=== PATIENT | female | born 1980 | race Caucasian/White ===

== ENCOUNTER 2024-11-27 17:04 | Emergency (ER) | payer MEDICAID, SELFPAY ==
[2024-11-27] VITALS (7 sets, daily range): BP systolic 134–158; BP diastolic 68–91; PULSE 57–74; RESP 14–20; TEMP 36.7–37.2; O2SAT 99–100
--- NOTE | 2024-11-27 17:30 | XR_ITS ---
Examination: Pelvic ultrasound, transabdominal, complete Technique: Transabdominal ultrasound of the pelvis performed using grayscale imaging Date and time of exam: November 27, 2024, 1845 hrs., Comparison March 09, 2021 Indications: Pelvic pain and irregular menses beginning this week Findings: Uterus 12.0 cm Endometrial mid uterine body mass vascular 6.1 x 4.5 x 3.1 cm, enlarged since the prior study Right ovary 3.4 cm arterial flow minimal free fluid Left ovary 4.2 cm arterial flow 21 x 19 mm cyst Impression: Large heterogeneous vascular mass in the mid uterus 6.1 x 4.5 x 3.1 cm, differential would include malignant neoplasm of the uterus Recommend elective MRI pelvis follow-up pre and postcontrast
--- NOTE | 2024-11-27 17:30 | XR_ITS ---
Examination: CT abdomen and pelvis without contrast. Coronal 3-D reconstructions. Sagittal 2-D reconstructions. Date and time of exam:November 27, 2024 19 14 mm Indications: Left lower abdominal pain flank pain beginning 2 days ago Comparison: March 09, 2021 CTDI: vol (mGy): 6.22 DLP: (mGycm): 336 Technique: Axial images of the abdomen have been obtained, 3 mm slice thickness Intravenous contrast material has not been administered. Low dose protocols were performed. One or more of the following dose reduction techniques were used; automated exposure control, adjustment of the mA and/or KV according to patient size, use of iterative reconstruction technique. Findings: 6 mm pulmonary nodule right lower No visualized liver lesion Contracted gallbladder No pancreatic or adrenal mass No renal or ureteral calculi, no hydronephrosis Normal appendix No bowel obstruction Significantly enlarged fundus of uterus with uterine fundal endometrial mass, please see the pelvic sonogram report today No adnexal mass Osseous structures intact No bladder mass or bladder calculi Impression: 6 mm pulmonary nodule right lower lobe, recommend PA lateral chest follow-up No renal or ureteral calculi, no hydronephrosis, no perinephric stranding Normal appendix Large mass in the fundus of uterus, please see the pelvic sonogram report and recommendations today No bladder mass or bladder calculi
--- NOTE | 2024-11-27 17:31 | PD.EDRME ---
Rapid Medical Screening Exam RME Arrival date/time: 11/27/24 17:04 43-year-old female presents to the Emergency Department for complains of pelvic pain and abdominal pain Chief Complaint: Abdominal Pain Vital signs: Vital Signs Temperature 98.9 F 11/27/24 17:24 Pulse Rate 74 11/27/24 17:24 Respiratory Rate 20 11/27/24 17:24 Blood Pressure 158/68 H 11/27/24 17:24 Pulse Oximetry (%) 100 11/27/24 17:24 Oxygen Delivery Method Room Air 11/27/24 17:24
[2024-11-27] MEDS: KETOROLAC INJ 60 MG/2 ML VIAL 30 MG IM (17:41)
[2024-11-27 17:49] LABS: Basophils # (Auto) 0.1 Thou/mm3 (0.0-0.2); Basophils % (Auto) 1 % (0-2.5); Eosinophils # (Auto) 0.2 Thou/mm3 (0.0-0.5); Eosinophils % (Auto) 2 % (0-10); Hematocrit 26.5 % (36.0-46.0); Immature Granulocytes Auto 0.07 Thou/mm3 (0.00-0.00); Lymphocytes # (Auto) 2.6 Thou/mm3 (1.0-4.8); Lymphocytes % (Auto) 24 % (10-50); Mean Corpuscular HGB Conc 26.0 g/dl (31.0-37.0); Mean Corpuscular Hemoglobin 16.1 pg (25.0-35.0); Mean Corpuscular Volume 62 fL (80-100); Monocytes # (Auto) 1.0 Thou/mm3 (0.0-0.8); Monocytes % (Auto) 9 % (0-12); Neutrophils # (Auto) 7.0 Thou/mm3 (1.8-7.7); Neutrophils % (Auto) 64 % (37-80); Nucleated Red Blood Cell # 0.00 Thou/mm3 (0.00-0.00); Nucleated Red Blood Cell % 0 /100 WBC (0); Platelet Count 397 Thou/mm3 (140-440); RDW Standard Deviation 41.8 fL (36.4-46.3); Red Blood Count 4.29 Miln/mm3 (4.00-5.20); White Blood Count 10.9 Thou/mm3 (3.6-11.0)
[2024-11-27 17:51] LABS: Hemoglobin 6.9 g/dL (12.0-16.0)
[2024-11-27 18:01] LABS: Alanine Aminotransferase 50 U/L (10-49); Albumin, Serum 3.8 gm/dL (3.5-5.0); Albumin/Globulin Ratio 1.3 (1.2-2.2); Alkaline Phosphatase 102 U/L (46-116); Anion Gap 8 (7-16); Aspartate Amino Transferase 51 U/L (0-34); BUN/Creatinine Ratio 17 Ratio (12-20); Bilirubin,Total 0.4 mg/dL (0.3-1.2); Blood Urea Nitrogen 12 mg/dL (9-23); Calcium 8.4 mg/dL (8.3-10.6); Calcium (Corrected) 8.6 mg/dL (8.5-10.1); Carbon Dioxide 24.4 mMol/L (20.0-31.0); Chloride 108 mMol/L (98-107); Creatinine (Component) 0.7 mg/dL (0.6-1.3); Globulin 3.0 gm/dL (2.3-3.5); Glucose 93 mg/dL (74-106); Osmolality,Calculated 279 (275-295); Potassium 4.3 mMol/L (3.4-5.1); Sodium 140 mMol/L (136-145); Total Protein 6.8 gm/dL (5.7-8.2); eGFR > 60 See Note
--- NOTE | 2024-11-27 18:23 | EDNOTE_ITS ---
ED Abdominal Pain RME/HPI General Chief Complaint: Abdominal Pain Stated complaint: ABD PAIN Time seen by provider: 11/27/24 18:24 Arrival date/time: 11/27/24 17:04 RME / HPI RME / HPI narrative: 11/27/24 17:04 43-year-old female presents to the Emergency Department for complains of pelvic pain and abdominal pain ------ Dr. Henry?s Main ED Evaluation: 43yo female presents to the ED for a chief complaint of LLQ pain x 2 days. No radiation or migration. Patient reports associated nausea and generalized weakness. Patient denies any vomiting, fever, chills, UTI symptoms, melena, hematochezia, or any other associated symptoms. She is currently menstruating. Patient has experienced similar symptoms when she was previously diagnosed with ovarian cysts. Allergies: codeine Related Data Previous Rx's ?Medication ?Instructions ?Recorded ferrous sulfate 325 mg (65 mg 325 mg PO BID #60 tabs 0 09/15/23 iron) tablet ferrous sulfate 325 mg (65 mg 325 mg PO TID #90 tabs 0 11/27/24 iron) tablet (Feosol) Allergies Allergy/AdvReac Type Severity Reaction Status Date / Time codeine Allergy Mild RASH Verified 03/09/21 10:30 Review of Systems Review of Systems Systems Reviewed: All systems reviewed, normal except as documented Past Medical History Past Medical History NEUROLOGIC: Positive Seizures; Negative Neurological Disorders CARDIAC: Positive Heart Murmur and Hypotension; Negative Cardiac Disorders or Congestive Heart Failure RESPIRATORY: Negative Chronic Obstructive Pulmonary Disease (COPD) or Asthma GASTROINTESTINAL: Negative Gastrointestinal Disorders GENITOURINARY: Negative Genitourinary Disorders or Renal Disease MUSCULOSKELETAL: Negative Musculoskeletal Disorders ENDOCRINE: Negative Endocrine Disorders, Diabetes Mellitus Type 1 or Diabetes Mellitus Type 2 HEMATOLOGIC: Negative Blood Disorders or Sickle Cell Disease PSYCHO/SOCIAL: Positive Anxiety Surgical History SURGICAL: Negative Cardiac Surgery Social History SMOKING STATUS: Current every day smoker SECOND HAND EXPOSURE: Yes ED Exam Narrative Physical exam: Generally the patient is alert appearing older than stated age but no obvious distress, heart regular rate and rhythm, lungs clear to auscultation equal bilaterally, abdomen soft bowel sounds present nondistended left lower quadrant abdominal tenderness without rebound. No suprapubic abdominal tenderness. Skin is warm pale and dry, neurologic exam shows Carmelo Coma Scale of 15. Course Quality Measures none Orders Category Date Time Status Insert IV NOW Care 11/27/24 18:45 Active Transfuse,blood/blood products NOW Care 11/27/24 18:[address] abdomen pelvis wo con Stat Exams 11/27/24 17:30 Completed US pelvic complete Stat Exams 11/27/24 17:30 Completed Antibody Identification Stat Lab 11/27/24 18:42 Results Beta HCG,Quantitative Stat Lab 11/27/24 17:37 Completed CBC Stat Lab 11/27/24 17:37 Completed Comprehensive Metabolic Panel Stat Lab 11/27/24 17:37 Completed Drug Screen,Urine Stat Lab 11/27/24 17:30 Ordered HCG Qualitative,Urine Stat Lab 11/27/24 17:30 Ordered Type and Screen Stat Lab 11/27/24 18:42 Results UA, C/S IF [Urinalysis, C/S if Indicated] Stat Lab 11/27/24 17:30 Ordered prbc [Red Blood Cells] Stat Lab 11/27/24 18:42 Results Ketorolac Inj [Toradol Inj] Med 11/27/24 17:31 Discontinued 30 mg IM X1 ONE Morphine* Inj Med 11/27/24 18:28 Discontinued 4 mg IVP X1 ONE Vital Signs Vital signs: Vital Signs Temperature 98.9 F 11/27/24 17:24 Pulse Rate 74 11/27/24 17:24 Respiratory Rate 20 11/27/24 17:24 Blood Pressure 158/68 H 11/27/24 17:24 Pulse Oximetry (%) 100 11/27/24 17:24 Oxygen Delivery Method Room Air 11/27/24 17:24 Abdominal Pain MDM MDM Narrative MDM Narrative:: Scribe Attestation: 11/27/24 Idania Smalls am scribing for and in the presence of Dr. Henry. I interpreted all labs. was negative. CT scan down the abdomen pelvis without contrast showed no acute inflammatory state. Pelvic ultrasound did show an intrauterine mass. That could be the cause of this patient's pain. She will need to follow-up with an FAMILY PSYCHOLOGIST physician and possibly undergo outpatient MRI. This was stressed to the patient and she understands the importance. Patient did receive morphine 4 mg IV for pain with benefit. Patient will be discharged in stable condition. Patient has a longstanding history of anemia and has needed blood transfusions in the past. It is a microcytic anemia. I will start the patient on iron. She denies melena or hematochezia. Her hemoglobin tonight was 6.9 so the patient will be transfused with 1 unit of packed RBCs. Patient data External records reviewed:: [facility] previous records (Per chart review, patient was seen here on 09/15/23 for anemia. ) Clinical information provided by:: patient Social determinants that could affect healthcare access:: none Patient has the following chronic illnesses:: none How is presenting disease/condition affected by chronic disease/condition?: no chronic disease Evaluation data The following diagnostics were reviewed and interpreted by me:: lab results and radiology exam(s) Lab and/or radiology exams considered but not ordered:: none Interpretation Summary: [facility] Report Signed Patient: SSUAN GUTIERREZ [employer]. Record#: [id number] Birthdate: 1980 Age/Sex: 43 / F Location: [facility] Attending Dr: Ordering Physician: Seb WEAVER)Chito NP Date of Service: 11/27/24 Procedure(s): US pelvic complete Accession Number(s): [id number] cc: Seb WEAVER),Chito [place]; Darshan Mai MD; NO PRIMARY/FAMILY,PHYSICIAN~ Examination: Pelvic ultrasound, transabdominal, complete Technique: Transabdominal ultrasound of the pelvis performed using grayscale imaging Date and time of exam: November 27, 2024, 1845 hrs., Comparison March 09, 2021 Indications: Pelvic pain and irregular menses beginning this week Findings: Uterus 12.0 cm Endometrial mid uterine body mass vascular 6.1 x 4.5 x 3.1 cm, enlarged since the prior study Right ovary 3.4 cm arterial flow minimal free fluid Left ovary 4.2 cm arterial flow 21 x 19 mm cyst Impression: Large heterogeneous vascular mass in the mid uterus 6.1 x 4.5 x 3.1 cm, differential would include malignant neoplasm of the uterus Recommend elective MRI pelvis follow-up pre and postcontrast Dictated By: Darshan Mai MD Signed By: <Electronically signed by Darshan Mai MD in > [facility] Report Signed Patient: SUSAN GUTIERREZ [employer]. Record#: [id number] Birthdate: 1980 Age/Sex: 43 / F Location: [facility] Attending Dr: Ordering Physician: Seb (LILIAN)Chito NP Date of Service: 11/27/24 Procedure(s): CT abdomen pelvis wo con Accession Number(s): [id number] cc: Seb WEAVER),Chito [place]; Darshan Mai MD; NO PRIMARY/FAMILY,PHYSICIAN~ Examination: CT abdomen and pelvis without contrast. Coronal 3-D reconstructions. Sagittal 2-D reconstructions. Date and time of exam:November 27, 2024 19 14 mm Indications: Left lower abdominal pain flank pain beginning 2 days ago Comparison: March 09, 2021 CTDI: vol (mGy): 6.22 DLP: (mGycm): 336 Technique: Axial images of the abdomen have been obtained, 3 mm slice thickness Intravenous contrast material has not been administered. Low dose protocols were performed. One or more of the following dose reduction techniques were used; automated exposure control, adjustment of the mA and/or KV according to patient size, use of iterative reconstruction technique. Findings: 6 mm pulmonary nodule right lower No visualized liver lesion Contracted gallbladder No pancreatic or adrenal mass No renal or ureteral calculi, no hydronephrosis Normal appendix No bowel obstruction Significantly enlarged fundus of uterus with uterine fundal endometrial mass, please see the pelvic sonogram report today No adnexal mass Osseous structures intact No bladder mass or bladder calculi Impression: 6 mm pulmonary nodule right lower lobe, recommend PA lateral chest follow-up No renal or ureteral calculi, no hydronephrosis, no perinephric stranding Normal appendix Large mass in the fundus of uterus, please see the pelvic sonogram report and recommendations today No bladder mass or bladder calculi Dictated By: Darshan Mai MD Signed By: <Electronically signed by Darshna Mai MD in [place]> 11/27/24 1929 Medications / Prescriptions Medications or Prescriptions considered but not ordered:: none Medication administrations:: Medication Administration History Discontinued Medications Ketorolac Tromethamine (Ketorolac Inj 60 Mg/2 Ml Vial) 30 mg IM X1 ONE Stop: 11/27/24 17:32 Last Admin: 11/27/24 17:41 Dose: 30 mg Documented By: Morphine Sulfate (Morphine Sulf Inj 4 Mg/Ml Vial) 4 mg IVP X1 ONE Stop: 11/27/24 18:29 Last Admin: 11/27/24 19:25 Dose: 4 mg Documented By: NAEEM see above Consultations Consultation(s) initiated? (list below): No Diagnosis Differential diagnosis abdominal pain: other (See MDM) Most likely diagnosis given after review of the tests above:: see clinical impression below Admission Indicated Admission indicated?: not indicated Admission Request Was there a request for admission?: No Disposition Plan Disposition Plan: Discharge Discharge Attestation Discharge Attestation: The patient and all family members were given an opportunity to ask questions and understood the discharge instructions. Discharge instructions specifically effects, indications for sooner follow up or return to the emergency department, and the expected course of current diagnosis. Patient condition: Stable Critical Care Time Critical Care Time Critical Care Time: Yes Total Critical Care Time (min.): 35 Attestation: Excluding other billable procedures Discharge Plan Plan Patient Disposition: HOME (Self Care) Prescriptions/Referrals Prescriptions/Med Rec: New ferrous sulfate [Feosol] 325 mg (65 mg iron) tablet 325 mg PO TID Qty: 90 0RF No Action ferrous sulfate 325 mg (65 mg iron) tablet 325 mg PO BID Qty: 60 0RF Referrals: No Primary/Family,Physician [Primary Care Provider] - In 1 week Problem List Clinical Impression: Uterine mass, Microcytic anemia Patient/Caregiver Discharge Instructions Additional Instructions: Your pain may be coming from the uterine mass. You need to follow-up with an FAMILY PSYCHOLOGIST physician. You may need outpatient MRI to better delineate the nature of this mass. It is very important that you follow-up for this uterine mass. Take the iron as prescribed. Print Language: Romanian Stand Alone Forms: [facility] Award Info., Patient Portal Info Letter
[2024-11-27] MEDS: MORPHINE SULF INJ 4 MG/ML VIAL IVP (19:25)
[2024-11-27 19:45] LABS: Beta HCG,Quantitative < 1 mIU/mL (<5.0)
[2024-11-27 22:01] LABS: Path Review Blood Smear Sent to Pathologist
== END 2024-11-27 22:44 | disposition home or self-care (01) ==
PROVIDERS: Nurse Practitioner Primary Care; Emergency Provider Emergency Medicine
DX: D50.9 Iron deficiency anemia, unspecified (principal); N85.8 Other specified noninflammatory disorders of uterus; R91.1 Solitary pulmonary nodule
CPT/HCPCS: 36415; 36430; 74176; 76856; 80053; 80307; 81001; 81025; 84702; 85025; 86850; 86870; 86900; 86901; 86920; 87634; 96372; 96374; 99285; J1885; J2270; P9016